=== PATIENT | male | born 1975 | race African-American/Black ===

== ENCOUNTER 2021-06-25 09:21 | Inpatient (IN) | payer MEDICAID ==
[~2021-06-25] VITALS: Ht 172.7 cm; Wt 89.0 kg
[2021-06-25] MEDS ORDERED: PREDNISONE 20MG TABLET PO STA (09:38)
[2021-06-25] MEDS ORDERED: ALBUTEROL (0.083%) 2.5MG/3ML NEB HHN STA (09:38)
[2021-06-25] MEDS ORDERED: IPRATROPIUM BROMIDE (0.02%) 0.5MG/2.5ML NEB HHN STA (09:38)
[2021-06-25] MEDS ORDERED: MAGNESIUM 2 G PREMIX 50 ML IV ONE (09:45)
[2021-06-25] MEDS ORDERED: TERBUTALINE SULFATE 1MG/ML VIAL SUBCUT ONE (09:45)
[2021-06-25 11:29] LABS: BASOPHILS % 0.8 % (0.0-2.0); CHLORIDE 106 mEq/L (98-107); EOSINOPHILS % 5.7 % (0.0-5.0); HEMATOCRIT. 44.6 % (42.0-52.0); HEMOGLOBIN. 14.7 g/dL (14.0-18.0); LYMPHOCYTES % 13.8 % (20.0-50.0); MEAN CORPUSCULAR HEMOGLOBIN 29.4 pg (28.0-32.0); MEAN CORPUSCULAR VOLUME 88.8 fL (80.0-94.0); MEAN PLATELET VOLUME 8.6 fl (7.4-10.4); MONOCYTES % 4.9 % (2.0-8.0); NEUTROPHILS % 74.8 % (40.0-76.0); PLATELET 209 x1000/uL (130-400); RED BLOOD CELL COUNT 5.02 mill/uL (4.7-6.1); RED CELL DISTRIBUTION WIDTH 14.2 % (11.6-14.6)
[2021-06-25] MEDS ORDERED: CLONIDINE 0.1MG TABLET PO PRN (12:15)
[2021-06-25] MEDS ORDERED: NALOXONE HCL 0.4MG/ML VIAL IV PRN (12:15)
[2021-06-25] MEDS ORDERED: IPRATROPIUM/ALBUTEROL 0.5-3(2.5)MG/3ML NEB HHN SCH (12:15)
[2021-06-25] MEDS ORDERED: ONDANSETRON HCL 4MG/2ML INJ IV PRN (12:15)
[2021-06-25] MEDS ORDERED: DOCUSATE SODIUM 100MG CAPSULE PO PRN (12:15)
[2021-06-25] MEDS ORDERED: GUAIFENESIN 200MG/10ML SUGAR FREE UDC PO PRN (12:15)
[2021-06-25] MEDS ORDERED: MORPHINE SULFATE 2 MG/ML CPJ (NOT FOR IM USE) IV PRN (12:15)
[2021-06-25] MEDS ORDERED: ACETAMINOPHEN 325MG TABLET PO PRN (12:15)
[2021-06-25] MEDS ORDERED: METHYLPREDNISOLONE SOD SUCC 125 MG/2 ML VIAL IV NR (15:00)
[2021-06-25 17:30] VITALS: BP 135/76
[2021-06-25] MEDS ORDERED: TRAZODONE HCL 50MG TABLET PO PRN (17:30)
[2021-06-25] MEDS ORDERED: TRAMADOL 50MG TABLET PO PRN (17:30)
[2021-06-25] MEDS ORDERED: TERBUTALINE SULFATE 1MG/ML VIAL SUBCUT NR (18:30)
[2021-06-25] MEDS ORDERED: METHYLPREDNISOLONE SOD SUCC 40 MG/ML VIAL IV SCH (22:00)
== END 2021-06-25 20:05 | disposition left against medical advice (07) | DRG 141 ==
LOC: ER 09:21 → 6EST 11:34 → ENRESERV 19:30
PROVIDERS: ADMIT Family Medicine Adult Medicine; ATTEND Family Medicine Adult Medicine
DX: J45.901 Unspecified asthma with (acute) exacerbation (principal); Z20.822 Contact with and (suspected) exposure to COVID-19; Z79.899 Other long term (current) drug therapy
CPT/HCPCS: 36415; 71045; 80048; 85025; 87426; 94640; 94644; 99285; J2930; J3105; J3475; J7512

== ENCOUNTER 2022-01-05 22:29 | Inpatient (IN) | payer MEDICAID ==
[~2022-01-05] VITALS: Ht 182.9 cm; Wt 100.4 kg
[2022-01-05] MEDS ORDERED: IPRATROPIUM BROMIDE (0.02%) 0.5MG/2.5ML NEB HHN STA (22:44)
[2022-01-05] MEDS ORDERED: METHYLPREDNISOLONE SOD SUCC 125 MG/2 ML VIAL IV STA (22:44)
[2022-01-05] MEDS ORDERED: ALBUTEROL (0.083%) 2.5MG/3ML NEB HHN STA (22:44)
[2022-01-06 00:04] LABS: BASOPHILS % 0.4 % (0.0-2.0); EOSINOPHILS % 0.6 % (0.0-5.0); HEMATOCRIT. 47.6 % (42.0-52.0); HEMOGLOBIN. 15.8 g/dL (14.0-18.0); LYMPHOCYTES % 11.5 % (20.0-50.0); MEAN CORPUSCULAR HEMOGLOBIN 29.1 pg (28.0-32.0); MEAN CORPUSCULAR VOLUME 87.8 fL (80.0-94.0); MONOCYTES % 2.4 % (2.0-8.0); NEUTROPHILS % 85.1 % (40.0-76.0); PLATELET 306 x1000/uL (130-400); RED BLOOD CELL COUNT 5.42 mill/uL (4.7-6.1); RED CELL DISTRIBUTION WIDTH 14.1 % (11.6-14.6)
[2022-01-06] MEDS ORDERED: ALBUTEROL (0.083%) 2.5MG/3ML NEB HHN NR (00:08)
[2022-01-06] MEDS ORDERED: IPRATROPIUM BROMIDE (0.02%) 0.5MG/2.5ML NEB HHN NR (00:08)
[2022-01-06 00:52] LABS: CHLORIDE 104 mEq/L (98-107)
[2022-01-06] MEDS ORDERED: ACETAMINOPHEN 325MG TABLET PO PRN (12:15)
[2022-01-06] MEDS ORDERED: ONDANSETRON HCL 4MG/2ML INJ IV PRN (12:15)
[2022-01-06 12:56] LABS: *AMPHETAMINES SCREEN URINE NEGATIVE (NEGATIVE); *BARBITURATES SCREEN URINE NEGATIVE (NEGATIVE); *BENZODIAZEPINES SCREEN URINE NEGATIVE (NEGATIVE); *COCAINE SCREEN URINE NEGATIVE (NEGATIVE); CANNABINOID URINE SCREEN PRESUMTIVE POSITIVE (NEGATIVE); METHADONE URINE SCREEN NEGATIVE (NEGATIVE); OPIATES URINE SCREEN NEGATIVE (NEGATIVE); PHENCYCLIDINE URINE SCREEN NEGATIVE (NEGATIVE)
[2022-01-06] MEDS: FAMOTIDINE 20MG TABLET PO SCH ×2 (14:03→20:19)
[2022-01-06] MEDS: METHYLPREDNISOLONE SOD SUCC 40 MG/ML VIAL IV SCH ×2 (14:03→21:11)
[2022-01-06 17:58] VITALS: BP 129/71
[2022-01-06 20:00] VITALS: BP 138/88
[2022-01-06] MEDS: IPRATROPIUM/ALBUTEROL 0.5-3(2.5)MG/3ML NEB HHN SCH (20:52)
[2022-01-07] VITALS: BP 137/83
[2022-01-07] MEDS: IPRATROPIUM/ALBUTEROL 0.5-3(2.5)MG/3ML NEB HHN SCH ×4 (01:34→18:00)
[2022-01-07 04:00] VITALS: BP 136/84
[2022-01-07] MEDS: METHYLPREDNISOLONE SOD SUCC 40 MG/ML VIAL IV SCH ×3 (05:37→21:29)
[2022-01-07 08:00] VITALS: BP 129/85
[2022-01-07] MEDS: FAMOTIDINE 20MG TABLET PO SCH ×2 (08:28→20:35)
[2022-01-07 12:00] VITALS: BP 127/81
[2022-01-07 16:00] VITALS: BP 132/89
[2022-01-07] MEDS ORDERED: P20 MT (18:44)
[2022-01-07 20:00] VITALS: BP 135/74
[2022-01-08] VITALS: BP 126/68
[2022-01-08 04:00] VITALS: BP 107/55
[2022-01-08] MEDS: IPRATROPIUM/ALBUTEROL 0.5-3(2.5)MG/3ML NEB HHN SCH ×3 (06:00→11:54)
[2022-01-08] MEDS: METHYLPREDNISOLONE SOD SUCC 40 MG/ML VIAL IV SCH ×3 (06:00→13:42)
[2022-01-08 08:00] VITALS: BP 124/87
[2022-01-08] MEDS: FAMOTIDINE 20MG TABLET PO SCH (08:59)
[2022-01-08 12:00] VITALS: BP 122/79
[2022-01-08 16:00] VITALS: BP 123/78
[2022-01-08] MEDS ORDERED: P20 MT (16:53)
[2022-01-08] MEDS ORDERED: IPRA3AMP9 NEB (16:53)
[2022-01-08 17:04] VITALS: BP 123/78
== END 2022-01-08 18:40 | disposition home or self-care (01) | DRG 133 ==
LOC: ER 22:29 → 7WST 23:54
PROVIDERS: ADMIT Internal Medicine Nephrology; ATTEND Internal Medicine Nephrology
DX: J96.00 Acute respiratory failure, unspecified whether with hypoxia or hypercapnia (principal); J45.901 Unspecified asthma with (acute) exacerbation; F41.9 Anxiety disorder, unspecified; F12.90 Cannabis use, unspecified, uncomplicated; Z20.822 Contact with and (suspected) exposure to COVID-19
CPT/HCPCS: 36415; 71045; 80053; 80305; 85025; 87426; 93005; 94618; 94640; 94644; 99291; C9803; J2920; J2930